=== PATIENT | male | born 1995 | race American Indian/Alaskan Native ===

== ENCOUNTER 2018-06-02 01:40 | Emergency (ER) | payer BC, OTHER ==
[2018-06-02 01:59] VITALS: RESP 20; O2SAT 96
--- NOTE | 2018-06-02 03:31 | C.PDOC ---
History Of Present Illness 22 year old male presents to the ED c/o bilateral eye redness, swelling associated with increased itching and tearing for the past 2 days. Patient reports he was using loft over Cipro eye drops he obtained from a relative with no relief. Patient fever, chills, headache, visual changes, direct trauma, FB exposure. Time Seen by Provider: 06/02/18 02:25 Chief Complaint (Nursing): Eye Problem History Per: Patient History/Exam Limitations: no limitations Onset/Duration Of Symptoms: Days (2) Current Symptoms Are (Timing): Still Present Quality: Burning Associated Symptoms: Swelling, Itching Recent travel outside of the [place]: No Additional History Per: Patient Past Medical History Reviewed: Historical Data, Nursing Documentation, Vital Signs Vital Signs: Last Vital Signs Temp 98.1 F 06/02/18 01:51 Pulse 67 06/02/18 01:51 Resp 20 06/02/18 01:51 BP 156/97 H 06/02/18 01:51 Pulse Ox 96 06/02/18 01:51 - Medical History PMH: No Chronic Diseases Surgical History: No Surg Hx Family History: States: Unknown Family Hx - Social History Hx Alcohol Use: No Hx Substance Use: No - Immunization History Hx Tetanus Toxoid Vaccination: No Hx Influenza Vaccination: No Hx Pneumococcal Vaccination: No Review Of Systems Constitutional: Negative for: Fever, Chills Eyes: Positive for: Conjunctivae Inflammation, Eyelid Inflammation, Redness ENT: Negative for: Nose Discharge, Nose Congestion Respiratory: Negative for: Cough, Shortness of Breath Gastrointestinal: Negative for: Nausea, Vomiting Skin: Negative for: Rash Neurological: Negative for: Headache, Dizziness Physical Exam - Physical Exam Appears: Non-toxic, No Acute Distress Skin: Normal Color, Warm, Dry Head: Atraumatic, Normacephalic, Tenderness (infraorbital area lower eyelid) Eye(s): bilateral: Normal Inspection ((+) tearing, visual acuity 20/70 without correction), Eyelid Inflammation (lower eyelid), Other (conjuctival erythema, edema conjuctival, no purulent D/C, no crusting of the lids) Ear(s): Bilateral: Normal Nose: No Discharge Oral Mucosa: Moist Throat: Normal, No Erythema, No Exudate Neck: Normal ROM, Supple Chest: Symmetrical Cardiovascular: Rhythm Regular Respiratory: Normal Breath Sounds, No Rales, No Rhonchi, No Wheezing Neurological/Psych: Oriented x3, Normal Speech, Normal Cognition Gait: Steady ED Course And Treatment O2 Sat by Pulse Oximetry: 96 (ON RA) Pulse Ox Interpretation: Normal Progress Note: Plan: - benadryl 50 mg PO. On reassessment, patient is resting comfortably, and is in no acute distress. Patient was instructed to follow up with physician/clinic in 1-2 days for further evaluation. Disposition Counseled Patient/Family Regarding: Diagnosis, Need For Followup, Rx Given - Disposition Referrals: Eze Maradiaga MD [Staff Provider] - Disposition: HOME/ ROUTINE Disposition Time: 03:21 Condition: STABLE Additional Instructions: Please follow up with PMD/ Eye doctor Please use all meds as directed Apply cold compress to both eyes Return to ER if worse Prescriptions: Cetirizine HCl [Zyrtec] 10 mg PO DAILY #14 capsule Dexamethasone/Tobramycin [Tobradex 0.1%-0.3% 2.5 Ml] 1 drop OP BID #1 bottle Instructions: Conjunctivitis (Noninfectious Pinkeye) (DC) Forms: [facility] ([place]) - Clinical Impression Clinical Impression: Allergic conjunctivitis - PA / [employer]AR [employer]ER / Resident Statement MD/DO has reviewed & agrees with the documentation as recorded. - Scribe Statement The provider has reviewed the documentation as recorded by the Scribe Brian Dumont All medical record entries made by the Scribe were at my direction and personally dictated by me. I have reviewed the chart and agree that the record accurately reflects my personal performance of the history, physical exam, medical decision making, and the department course for this patient. I have also personally directed, reviewed, and agree with the discharge instructions and disposition.
[2018-06-02 03:53] VITALS: BP 148/86; PULSE 62; TEMP 98.6
== END 2018-06-02 03:53 | disposition home or self-care (01) ==
LOC: C.ER 01:40
DX: H10.10 Acute atopic conjunctivitis, unspecified eye (principal)